=== PATIENT | male | born 1970 ===

== ENCOUNTER 2017-12-30 17:42 | Emergency (ER) | payer SELFPAY ==
[2017-12-30 17:56] VITALS: BP 120/73; PULSE 75; RESP 16; TEMP 36.7; O2SAT 98
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
[2017-12-30] MEDS: Ibuprofen 800 MG TAB PO (18:20)
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
[2017-12-30] MEDS: HYDROcodone 5/Acetaminophen 325 TAB PO (19:57)
[2017-12-30 20:02] VITALS: BP 122/70; PULSE 72; RESP 16; O2SAT 98
== END 2017-12-30 20:01 | disposition home or self-care (01) ==
PROVIDERS: Emergency Provider Emergency Medicine
DX: S43.101A Unspecified dislocation of right acromioclavicular joint, initial encounter (principal); M54.2 Cervicalgia; V18.0XXA Pedal cycle driver injured in noncollision transport accident in nontraffic accident, initial encounter; Y93.55 Activity, bike riding
CPT/HCPCS: 23540; 99284; 71045; 72040; 73030; 99281; L0172